=== PATIENT | female | born 1950 | race Caucasian/White ===

== ENCOUNTER 2016-12-07 09:15 | Emergency (ER) | payer OTHER ==
[2016-12-14] MEDS ORDERED: HYZAAR 100/25 T1 TAB PO (09:57)
[2016-12-14] MEDS ORDERED: PRAVACHOL40 MG PO (09:57)
[2016-12-14] MEDS ORDERED: NORV5 PO (09:58)
[2016-12-14] MEDS ORDERED: NEUR300 PO (09:58)
[2016-12-14] MEDS ORDERED: MOBIC7.5 PO (09:58)
[2016-12-14] MEDS ORDERED: CALTRA600D PO (09:59)
[2016-12-14] MEDS ORDERED: METAMUCIL TABS PO (09:59)
[2016-12-14] MEDS ORDERED: MULTI-VIT HP PO (09:59)
[2016-12-14] MEDS ORDERED: PRILOSEC OTC20 MG PO (10:00)
[2016-12-14] MEDS ORDERED: PCET PO (10:01)
[2017-06-28] MEDS ORDERED: IBU800 PO (16:10)
[2017-06-28] MEDS ORDERED: ACET500CAP PO (16:10)
== END 2016-12-07 12:30 | disposition home or self-care (01) ==
LOC: ER 09:15
DX: M54.16 Radiculopathy, lumbar region (principal); I10 Essential (primary) hypertension; Z88.2 Allergy status to sulfonamides
CPT/HCPCS: 72148; 96374; 96375; 99284; A9270-GY; J1170; J2405

== ENCOUNTER 2016-12-21 05:27 | Day surgery (SDC) | payer OTHER ==
[~2016-12-21 05:27] MED LIST: CALTRA600D PO; HYZAAR 100/25 T1 TAB PO; METAMUCIL TABS PO; MOBIC7.5 PO; MULTI-VIT HP PO; NEUR300 PO; NORV5 PO; PCET PO; PRAVACHOL40 MG PO; PRILOSEC OTC20 MG PO
[2017-06-28] MEDS ORDERED: IBU800 PO (16:10)
[2017-06-28] MEDS ORDERED: ACET500CAP PO (16:10)
== END 2016-12-21 08:14 | disposition home or self-care (01) ==
LOC: SDC 05:27
PROVIDERS: Orthopaedic Surgery
PROC: 3E0S3BZ Introduction of Anesthetic Agent into Epidural Space, Percutaneous Approach (ICD-10-PCS; 2016-12-21)
PROC: 3E0S33Z Introduction of Anti-inflammatory into Epidural Space, Percutaneous Approach (ICD-10-PCS; principal; 2016-12-21 07:15)
DX: M54.16 Radiculopathy, lumbar region (principal); M54.17 Radiculopathy, lumbosacral region; E78.00 Pure hypercholesterolemia, unspecified; I10 Essential (primary) hypertension; M19.90 Unspecified osteoarthritis, unspecified site; M79.7 Fibromyalgia; K21.9 Gastro-esophageal reflux disease without esophagitis; Z88.2 Allergy status to sulfonamides; Z90.49 Acquired absence of other specified parts of digestive tract; Z90.710 Acquired absence of both cervix and uterus; Z96.652 Presence of left artificial knee joint; Z98.41 Cataract extraction status, right eye; Z98.42 Cataract extraction status, left eye; Z98.890 Other specified postprocedural states
CPT/HCPCS: J2250; J3010; Q9967